=== PATIENT | female | born 1985 | race Caucasian/White ===

== ENCOUNTER 2017-05-30 04:50 | Inpatient (IN) | payer OTHER ==
[2017-05-30] MEDS ORDERED: OLIVE OIL 118 ML BTL MISC PRN (05:51)
[2017-05-30] MEDS ORDERED: LR 1,000 ML IV PRN (05:51)
[2017-05-30] MEDS ORDERED: OXYTOCIN/RINGERS LACTATE 1,000 ML IV PRN (05:51)
[2017-05-30] MEDS ORDERED: EPSOM SALT 454 GM TP PRN (05:51)
[2017-05-30] MEDS ORDERED: TERBUTALINE SULFATE 1 MG/ML VIAL IV PRN (05:51)
[2017-05-30] MEDS ORDERED: OLIVE OIL 118 ML BTL ONE (05:54)
[2017-05-30] MEDS ORDERED: LIDOCAINE 1% 300 MG/30 ML SDV ONE (05:54)
[2017-05-30] MEDS ORDERED: AMMONIA AROMATIC 1 EACH AMP IH ONE (05:54)
[2017-05-30] MEDS ORDERED: OXYTOCIN 10 UNIT/ML VIAL ONE (05:55)
[2017-05-30] MEDS ORDERED: TERBUTALINE SULFATE 1 MG/ML VIAL ONE (05:55)
[2017-05-30] MEDS ORDERED: MISOPROSTOL 200 MCG TAB ONE (05:55)
[2017-05-30 06:12] LABS: % IMMATURE GRANULYOCYTES 1.1 % (0.0-1.1); ABSOLUTE IMMATURE GRANULOCYTES 0.24 10^3/uL (0.00-0.10); ADD DIFF? NO; ADD MORPH? NO; ADD SCAN? NO; ATYPICAL LYMPHOCYTE FLAG 0 (0-99); FRAGMENT RBC FLAG 0 (0-99); HEMATOCRIT 36.5 % (38.0-47.0); HEMOGLOBIN 12.9 g/dL (12.6-16.3); LEFT SHIFT FLG 0 (0-99); LIPEMIA HEMOLYSIS FLAG 90 (0-99); MEAN CELL HEMOGLOBIN 30.8 pg (27.9-34.1); MEAN CELL HEMOGLOBIN CONCENTR. 35.3 g/dL (32.4-36.7); MEAN CELL VOLUME 87.1 fL (81.5-99.8); MEAN PLATELET VOLUME 10.9 fL (8.7-11.7); PLATELET CLUMPS FLAG 0 (0-99); PLATELET COUNT 199 10^3/uL (150-400); RED BLOOD CELL COUNT 4.19 10^6/uL (4.18-5.33); RED CELL DISTRIBUTION WIDTH 13.2 % (11.5-15.2)
[2017-05-30] MEDS ORDERED: fentaNYL 2MCG/ML/BUP 0.1% RTU 100 ML BAG EP ONE (06:39)
[2017-05-30] MEDS ORDERED: fentaNYL 100 MCG/2 ML INJ ONE ×2 (06:40→06:52)
[2017-05-30] MEDS ORDERED: BUPIVACAINE 0.25% 30 ML SDV ONE (06:40)
[2017-05-30] MEDS ORDERED: PHENYLEPHRINE HCL 100 MCG/ML SYR ONE (06:40)
--- NOTE | 2017-05-30 07:35 | PREANESOB ---
Obstetric Pre-Anesthesia Info - General Info Proposed Procedure: Labor and delivery. : 2 Para: 0 WBD: 38 - Info Status: Full Term Monitors: External FHR Baseline (bpm): 130 FHR Pattern: Reassuring - Labor Status Cervical Dilation per last OB SVE: 5 Indications for Labor Analgesia: Pain Control Labor Epidural: Proposed Anesthesia ROS: Mild asthma - no medication. Oral surgery with pain in spite of local anesthetic. Allergies/Adverse Reactions: Allergy/AdvReac Type Severity Reaction Status Date / Time No Known Allergies Allergy Unverified 05/30/17 05:14 Visit Medications: Generic Name Dose Route Start Last Admin Trade Name Freq PRN Reason Stop Dose Admin Lactated Ringer's 1,000 mls @ 0 mls/hr 05/30/17 05:51 Lr IV 11/26/17 05:50 PRN PRN SEE PROTOCOL CONDITIONS Protocol Per Protocol Oxytocin/Lactated Ringer's 1,000 mls @ 150 mls/hr 05/30/17 05:51 Pitocin 20 Units/Lr (Premix) IV PRN PRN Post- bleeding Ibuprofen 600 mg 05/30/17 05:51 Motrin PO 11/26/17 05:50 Q6HRS PRN post , inflammation Magnesium Sulfate 454 gm 05/30/17 05:51 Epsom Salt TP 11/26/17 05:50 Q1H PRN perineal discomfort Morrison Oil 118 ml 05/30/17 05:51 Sweet Oil MISC 11/26/17 05:50 ONCE PRN preneal massage Terbutaline Sulfate 0.25 mg 05/30/17 05:51 Brethine IV 11/26/17 05:50 ONCE PRN Tachysystole Discontinued Medications Generic Name Dose Route Start Last Admin Trade Name Freq PRN Reason Stop Dose Admin Ammonia (Aromatic Spirit) Confirm 05/30/17 05:54 Ammonia Aromatic Administered 05/30/17 05:55 Dose 1 each IH .STK-MED ONE Bupivacaine HCl Confirm 05/30/17 06:40 Sensorcaine 0.25% Sdv Administered 05/30/17 06:41 Dose 30 ml .ROUTE .STK-MED ONE Ephedrine Sulfate Confirm 05/30/17 05:55 Ephedrine Sulfate Administered 05/30/17 05:56 Dose 50 mg .ROUTE .STK-MED ONE Fentanyl Confirm 05/30/17 06:40 Sublimaze Administered 05/30/17 06:41 Dose 100 mcg .ROUTE .STK-MED ONE Fentanyl Confirm 05/30/17 06:52 Sublimaze Administered 05/30/17 06:53 Dose 100 mcg .ROUTE .STK-MED ONE Fentanyl/Bupivacaine HCl Confirm 05/30/17 06:39 Fentanyl/Bupivacaine/Ns 2 Mcg/Ml 0.1% (Premix Administered 05/30/17 06:40 Dose 100 ml EP .STK-MED ONE Lidocaine HCl Confirm 05/30/17 05:54 Lidocaine Hcl 1% Administered 05/30/17 05:55 Dose 300 mg .ROUTE .STK-MED ONE Misoprostol Confirm 05/30/17 05:55 Cytotec Administered 05/30/17 05:56 Dose 1,000 mcg .ROUTE .STK-MED ONE Morrison Oil Confirm 05/30/17 05:54 Sweet Oil Administered 05/30/17 05:55 Dose 118 ml .ROUTE .STK-MED ONE Oxytocin Confirm 05/30/17 05:55 Pitocin Administered 05/30/17 05:56 Dose 40 unit .ROUTE .STK-MED ONE Phenylephrine HCl Confirm 05/30/17 06:40 Neosynephrine Administered 05/30/17 06:41 Dose 1,000 mcg .ROUTE .STK-MED ONE Terbutaline Sulfate Confirm 05/30/17 05:55 Brethine Administered 05/30/17 05:56 Dose 1 mg .ROUTE .STK-MED ONE - Anesthesia History Response to Local Anesthetics: Normal Anesthesia & Operative History: Prob w/Prior Anesthesia (Local anesthetic not adequate for oral surgery.) Family Anesthesia History: Not Applicable - Social History Substance Use/Abuse: Denies - Focused Exam Blood Pressure: 111/66 Heart Rate: 74 Respiratory Rate: 18 Height/Weight (Nursing): Height 162.56 cm Weight 65.317 kg Physical Exam: Within normal limits. ASA Status: II Labs: 05/30/17 06:00 Patient ABO/Rh A POSITIVE 05/30/17 06:00 - Plan Anesthetic Plan: CSE Consent Signed and on Chart: Yes Patient/Guardian Understands and Agrees to Plan: Yes Urgent/Emergent Case: Galina holman completed preop but documented later for safe timely pt care
[2017-05-30] MEDS ORDERED: PHENYLEPHRINE HCL 100 MCG/ML SYR IVP PRN (07:38)
[2017-05-30] MEDS ORDERED: ONDANSETRON 4 MG/2 ML VIAL IVP PRN (07:38)
--- NOTE | 2017-05-30 07:38 | POSTANESTH ---
Post Anesthetic Evaluation Cardiovascular Status: Normal, Stable Respiratory Status: Normal, Stable, Similar to Pre-op Cond. Level of Consciousness/Mental Status: Can Participate in Eval, Alert and Oriented Pain Control: Adequate, Prn Tx Ordered Nausea/Vomiting Control: Adequate, Prn Tx Ordered Complications Possibly Related to Anesthesia: None Noted
[2017-05-30] MEDS ORDERED: LR 500 ML IV SCH (08:00)
[2017-05-30] MEDS ORDERED: fentaNYL 2MCG/ML/BUP 0.1% RTU 100 ML EP SCH (08:00)
--- NOTE | 2017-05-30 10:07 | OBPROG ---
OBG Labor Progress Note Assessment/Plan: Assessment: 32 y/o @ 37 5/7 wks with active labor Plan: Cont expectant management s/p epidural FHTs - Cat I tracing Will start pushing Anticipate 05/30/17 10:05 Subjective: Pt is comfortable, s/p epidural Objective: 05/30/17 06:00 Patient ABO/Rh A POSITIVE 05/30/17 06:00 Temp Pulse Resp BP Pulse Ox 74 18 111/66 05/30/17 07:37 05/30/17 07:37 05/30/17 07:37 - SVE Dilation (cm): 10 Effacement (%): 100 Station: +2 Dilation Complete Date: 05/30/17 Dilation Complete Time: 09:15 Robin FHR (bpm): 130 FHR Pattern Variability: Moderate FHR Category: 1 Membranes: SROM Amniotic Fluid Color: Clear Oxytocin Orders Assessment - Pre-Induction/Augmentation Assessment Gestational Age: 37 week(s) and 5 day(s) ICD10 Worksheet Patient Problems: Problems Problem Status Onset Active labor at term Acute - ICD10 Problem Qualifiers (1) Active labor at term
[2017-05-30] MEDS ORDERED: LR 500 ML IV PRN (10:34)
[2017-05-30] MEDS ORDERED: OXYTOCIN/RINGERS LACTATE 500 ML IV SCH (11:00)
--- NOTE | 2017-05-30 11:28 | GHP ---
[f rep st] HISTORY AND PHYSICAL DATE OF ADMISSION: 05/30/2017 ADMITTING DIAGNOSIS: 1. Intrauterine at 37 and 5/7 weeks. 2. Active labor. 3. Spontaneous rupture of membranes. HISTORY OF PRESENT ILLNESS: Patient is a 32-year-old, 2, para 0-0-1-0, at 37 and 5 weeks with estimated due date 06/15/2017 by a last menstrual period 09/07/2016, and confirmed by a 7-8 week ultrasound. The patient presents to labor and delivery with complaints of leakage of fluid as well as contractions. The patient states clear fluid at about 6:30 this morning as well as contractions every 3-5 minutes. The patient states there is good movement. Denies any vaginal bleeding or spotting. The patient does have good care at [facility] and presented in her 1st trimester. is pretty much uncomplicated. The patient did have an abnormal Pap smear, ASCUS, positive HPV. She did have a colposcopy done in the with no biopsies. Will follow up . On 20-week ultrasound, there was estimated weight 90th percentile and follow up ultrasound at 36 weeks showed growth in 21st percentile. Ultrasound also noted pyelectasis which resolved on followup ultrasound at 36 weeks. Negative Verifi. The patient did receive Tdap. GBS culture is negative. PAST OB HISTORY: In 2006, patient had a therapeutic . 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 Cycles every 28 days times 3-5 days. Last menstrual period 09/07/2016. Positive test 10/16/2016. Patient does have a history of abnormal Pap smears. 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 Patient did have an abnormal Pap smear during this , ASCUS, +HPV. The patient denies exposure to any other sexually transmitted diseases. PAST MEDICAL HISTORY: Childhood asthma.. PAST SURGICAL HISTORY: Adenoidectomy at age 6-7. Therapeutic 2006. MEDICATIONS: [id number] vitamins, DHA. ALLERGIES: No known drug allergies. SOCIAL HISTORY: Patient is engaged. She is a nurse on the orthopedic floor. Denies any alcohol, tobacco, illicit drug use. SOCIAL HISTORY: Patient is adopted. LABS: A positive, antibody negative. RPR nonreactive. Rubella immune. Hepatitis B surface antigen negative. HIV negative. Verifi is negative. Urine culture negative. Pap ASCUS, +HPV. Gonorrhea and chlamydia cultures negative. H and H 12.8, 37.1. One-hour Glucola 81. GBS culture negative. REVIEW OF SYSTEMS: 10-point review of systems negative. Any pertinent positives noted in HPI. PHYSICAL EXAMINATION: VITALS: On admission, vital signs are stable. Patient is afebrile, well-nourished, well-developed female. Alert, oriented x3. No apparent distress. CARDIOVASCULAR: Regular rate and rhythm. LUNGS: Clear to auscultation bilaterally. Normal breath sounds. ABDOMEN: Gravid, nontender, nondistended. EXTREMITIES: Normal to inspection without calf tenderness or edema. PELVIC: On initial exam, she was found to be 4-5 cm dilated, grossly ruptured, clear fluid. On the monitor, heart tones are Category 1 tracing with a baseline of 130 beats per minute. Positive accelerations. No decelerations. Moderate variability. On toco, she is agustín every 3-5 minutes. ASSESSMENT: The patient is a 32-year-old, 2, para 0-0-1-0, at 37 and 5 weeks who presents in active labor with spontaneous rupture of membranes. PLAN: 1. Admit to labor and delivery for expectant management. 2. GBS culture is negative. No antibiotics needed. 3. Patient desires an epidural. 4. Anticipate vaginal delivery. /[id number]/MODL MTDD
[2017-05-30] MEDS ORDERED: METHYLERGONOVINE MAL 0.2 MG/ML INJ ONE (13:45)
[2017-05-30 13:59] LABS: BASE EXCESS CORD -2.9 mEq/L (-13.6--3.2); CORD BLOOD PCO2 32.8 mmHg (37-60); PH ARTERIAL CORD BLOOD 7.41 (7.10-7.37); PH VENOUS CORD BLOOD 7.42 (7.20-7.42)
[2017-05-30] MEDS ORDERED: HYDROCODONE/APAP 5/325 TAB PO PRN (14:03)
[2017-05-30] MEDS ORDERED: SIMETHICONE 80 MG TAB CHEW PO PRN (14:03)
[2017-05-30] MEDS ORDERED: HYDROCORTISONE 0.5% CREAM TP PRN (14:03)
[2017-05-30] MEDS ORDERED: DOCUSATE SODIUM 100 MG CAP PO PRN (14:03)
[2017-05-30] MEDS ORDERED: IBUPROFEN 600 MG TAB PO PRN (14:04)
--- NOTE | 2017-05-30 14:08 | OBDEL ---
Info Type: Vaginal GBS+: No Indications for Delivery: Spontaneous Labor, SROM Vaginal Delivery - Labor and Delivery Onset of Contractions Date: 05/30/17 Onset of Contractions Time: 02:30 Onset of Contractions Type: Spontaneous Rupture of Membranes Date: 05/30/17 Rupture of Membranes Time: 06:40 Rupture of Membranes Type: Spontaneous Amniotic Fluid Color: Clear, Meconium Stained (During second stage of labor) Dilation Complete Date: 05/30/17 Dilation Complete Time: 09:15 Placenta Delivery Date: 05/30/17 Placenta Delivery Time: 13:40 Total Hours of Labor: 11 Non-surgical Procedures: Episiotomy (Midline with no extensions) Episiotomy: Midline Repair: 3-0, Vicryl Vaginal Sponge Count Correct: Yes Vaginal Needle Count Correct: Yes Vaginal Sweep Performed: Yes EBL: 500cc Delivery Events: Nuchal Cord (x1; loose-slipped over perineum), Post Hemorrhage (Uterus noted to be boggy even with massage. Pitocin was running. Cytotec 1000mcg MD was given as well as Methergine IM x 1. Uterus became firm and bleeding slowed down.) Cord Gases: Cord Gases Cord Blood PCO2 32.8 mmHg (37-60) L 05/30/17 13:34 Cord Base Excess -2.9 mEq/L (-13.6--3.2) H 05/30/17 13:34 Cord ABG pH 7.41 (7.10-7.37) H 05/30/17 13:34 Cord VBG pH 7.42 (7.20-7.42) 05/30/17 13:34 - Medications Labor Augmentation/Induction Methods Used: Pitocin (During second stage of labor -ctx's spaced out.) Operative Report - Delivery Cord Gases: Cord Gases Cord Blood PCO2 32.8 mmHg (37-60) L 05/30/17 13:34 Cord Base Excess -2.9 mEq/L (-13.6--3.2) H 05/30/17 13:34 Cord ABG pH 7.41 (7.10-7.37) H 05/30/17 13:34 Cord VBG pH 7.42 (7.20-7.42) 05/30/17 13:34 Assissted Delivery Assisted Delivery Type: Vacuum (Kiwi) Station: +3 Pop offs (Total): 1 Pulls (Total): 3 (Duration of 4 min and then removed and due to maternal exhaustion reapplied x 2 min with first pop-off) Data Robin Delivery Date: 05/30/17 Delivery Time: 13:34 MIRELLA: 06/15/17 Gestational Age: 37 week(s) and 5 day(s) Sex of Infant: Male Score (1 Min): 7 Score (5 Min): 9 ICD10 Worksheet Patient Problems: Problems Problem Status Onset Active labor at term Acute - ICD10 Problem Qualifiers (1) Active labor at term
[2017-05-30] MEDS: IBUPROFEN 600 MG TAB PO PRN ×2 (14:10→19:52)
[2017-05-30 16:52] VITALS: O2SAT 95
[2017-05-31] MEDS: IBUPROFEN 600 MG TAB PO PRN (02:16)
[2017-05-31 08:03] VITALS: BP 101/67; PULSE 80; RESP 16; TEMP 97.4
[2017-05-31] MEDS ORDERED: IRON POLYSAC/IRON HEME 28 MG TAB PO SCH (09:00)
--- NOTE | 2017-05-31 09:00 | OBPP ---
Progress Note Assessment/Plan: Assessment: 32 y/o PPD #1 s/p doing well. Plan: D/c home today is baby is stable with Ibuprofen. Follow-up @ [facility] 4 and 6 weeks. 05/31/17 08:59 Subjective: Pt is doing well this am. She has min cramping and pain controlled with Ibuprofen. She has min lochia, ambulating, voiding well and baby is doing well. Breast feeding just waiting for milk to come in. Objective: 05/31/17 05:30 Patient ABO/Rh A POSITIVE 05/30/17 06:00 Temp Pulse Resp BP Pulse Ox 36.3 C 80 16 101/67 95 05/31/17 07:59 05/31/17 07:59 05/31/17 07:59 05/31/17 07:59 05/30/17 21:11 Uterine Position/Fundal Height: Umbilicus -2 Uterine Tone: Firm Physical Exam - Physical Exam General Appearance: WD/WN, alert, no apparent distress Neck: non-tender, full range of motion, supple Respiratory: chest non-tender, lungs clear, normal breath sounds Cardiac/Chest: regular rate, rhythm Abdomen: normal bowel sounds Extremities: swelling (no), Maia's sign (neg)
--- NOTE | 2017-05-31 09:04 | OBGCSDC ---
General Delivery Information - General Info : 2 Para: 1 Abortions: 1 Delivery Physician/CNM: Viktoria Dunbar Admission Date: 05/30/17 Labs: Patient ABO/Rh A POSITIVE 05/30/17 06:00 Hct 25.1 % (38.0-47.0) L D 05/31/17 05:30 Vaginal - Diagnosis Labor: Spontaneous Rupture of Membranes Type: Spontaneous Amniotic Fluid Color: Clear, Meconium Stained (During second stage of labor) Episiotomy: Midline Repair: 3-0, Vicryl Delivery Events: Nuchal Cord (x1; loose-slipped over perineum), Post Hemorrhage (Uterus noted to be boggy even with massage. Pitocin was running. Cytotec 1000mcg NV was given as well as Methergine IM x 1. Uterus became firm and bleeding slowed down.) - Operations/Procedures Assisted Delivery Type: Vacuum (Kiwi) Non-surgical Procedures: Episiotomy (Midline with no extensions) L&D Analgesia/Anesthesia Type: Epidural, IV Narcotics - Hospital Course Antepartum: Pt with abn pap, Had EFW > 98% Intrapartum: presented in active labor, SROM clear fluid, epidural, pushed 2-3 hours vacuum assist : normal course, d/c home 24 hours. - Delivery Non-surgical Procedures: Episiotomy (Midline with no extensions) L&D Analgesia/Anesthesia Type: Epidural, IV Narcotics Data Robin Delivery Date: 05/30/17 Delivery Time: 13:34 MIRELLA: 06/15/17 Gestational Age: 37 week(s) and 6 day(s) Sex of Infant: Male [place] Weight (gm): 2794 kg Score (1 Min): 7 Score (5 Min): 9 Discharge Information - Discharge Information Discharge Medications: Iron, Ibuprofen Instruction/Follow Up: Four Weeks, Six Weeks Discharge Physician/CNM: Viktoria Dunbar
== END 2017-05-31 17:00 | disposition home or self-care (01) | DRG 774 ==
LOC: FLD 04:50 → OBSVTOIN 04:50 → FOB 16:50
PROVIDERS: ADMIT Obstetrics & Gynecology; ATTEND Obstetrics & Gynecology
PROC: 10D07Z6 Extraction of Products of Conception, Vacuum, Via Natural or Artificial Opening (ICD-10-PCS; principal; 2017-05-30)
DX: O69.82X0 Labor and delivery complicated by other cord entanglement, without compression, not applicable or unspecified (principal); O72.2 Delayed and secondary postpartum hemorrhage; Z37.0 Single live birth; Z3A.37 37 weeks gestation of pregnancy
CPT/HCPCS: J2210; J2370; J2590; J3010; J3105

== ENCOUNTER 2018-03-31 13:28 | Inpatient (IN) | payer OTHER ==
[2018-03-31 13:57] LABS: PLATELET COUNT 308 10^3/uL (150-400)
--- NOTE | 2018-03-31 15:01 | EDPHY ---
H & P Smoking Status: Never smoked Time Seen by Provider: 03/31/18 13:53 HPI/ROS: CHIEF COMPLAINT: Upper abdominal pain HISTORY OF PRESENT ILLNESS: Patient states that she has had right upper quadrant abdominal pain off and on for the last 2 weeks. It radiates to the back and associated with some belching and hiccups but no nausea, vomiting, diarrhea. No dysuria. Patient states it is usually worse at night but is sometimes worse with food. This morning after breakfast the pain became quite severe and she came in for evaluation. She denies any chest pain, shortness of breath. She has tried some antacids with no relief. No significant EtOH. Last menstrual period 3 weeks ago and has a new ring. No fevers or other recent illnesses. Contents of 10 point review of systems otherwise negative except for what is mentioned in HPI. General Appearance: Alert, no distress. Eyes: Pupils equal and round no pallor or injection. ENT, Mouth: Mucous membranes moist. Respiratory: There are no retractions, lungs are clear to auscultation. Cardiovascular: Regular rate and rhythm. Gastrointestinal: Abdomen is soft, no masses, bowel sounds normal. Tenderness to the right upper quadrant with positive Rueda's. No peritoneal signs. Neurological: Awake and alert, no focal neurologic deficits. Skin: Warm and dry, no rashes. Musculoskeletal: Neck is supple nontender. Extremities are symmetrical, full range of motion, no edema. Psychiatric: Patient is oriented X 3, there is no agitation. Medical/surgical history: Asthma, no surgeries. 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 Has 1 child. (Margie Mclean) Constitutional: Initial Vital Signs Temperature (C) 36.6 C 03/31/18 13:34 Heart Rate 75 03/31/18 13:34 Respiratory Rate 18 03/31/18 13:34 Blood Pressure 121/92 H 03/31/18 13:34 O2 Sat (%) 96 03/31/18 13:34 O2 Delivery Mode Room Air Allergies/Adverse Reactions: red dye Allergy (Uncoded 03/31/18 13:34) Home Medications: Medication Instructions Recorded NK [No Known Home Meds] 03/31/18 Medical Decision Making - Diagnostics Imaging: Discussed imaging studies w/ scalloper Radiologist - Diagnostics Imaging Results: Imaging Impressions Abdomen Ultrasound 03/31/18 14:08 Impression: 1. Cholelithiasis and distended gallbladder with choledocholithiasis. 2. Common bile duct is mildly dilated measuring 6 to 7 mm. Findings discussed with Margie Mclean MD at 15:21 hour, 03/31/2018. ED Course/Re-evaluation: Re-evaluation at 2:20 p.m., I discussed laboratory findings with patient. Suspicious for obstructive cholelithiasis. Patient requesting general surgeon Dr. Ortiz if surgical problem found on right upper quadrant ultrasound. 3:00 p.m. discussed patient in detail with Dr. Weems. Currently awaiting ultrasound results. Patient continues to refuse pain medications or IV fluids at this time. She states she is intolerant of normal saline but likely lactated Ringer's would be tolerable if needed. (Margie Mclean) Differential Diagnosis: Differential diagnosis includes but is not limited to cholelithiasis, cholecystitis, choledocholithiasis, hepatitis, pancreatitis. After evaluation the emergency department prior to ultrasound results likely obstructive cholelithiasis. Awaiting ultrasound results and disposition pending. Dr. Weems taking over care. (Margie Mclean) Other Provider: I assumed care of this patient from Dr. Mclean at 3 o'clock, change of shift. Ultrasound was reported as demonstrating gallstones in the gallbladder as well as a common bile duct stone. I discussed the findings with the patient. She understands the need to be NPO as well as the need for urgent surgery. She requests that I contact Dr. Maggie Amaro for surgical treatment. Patient's last oral intake was 930 this morning. She again declined pain meds or antibiotics. She again declined IV fluids. Patient will be admitted to [facility]. She is stable for POV transfer. She was transferred with her driving. ( Mikayla Weems) - Data Points Laboratory Results: Laboratory Results 03/31/18 13:50 03/31/18 13:50 03/31/18 03/31/18 03/31/18 14:10 14:10 13:50 WBC RBC Hgb Hct MCV MCH MCHC RDW Plt Count MPV Neut % (Auto) Lymph % (Auto) Avery % (Auto) Eos % (Auto) Baso % (Auto) Nucleat RBC Rel Count Absolute Neuts (auto) Absolute Lymphs (auto) Absolute Monos (auto) Absolute Eos (auto) Absolute Basos (auto) Absolute Nucleated RBC Immature Gran % Immature Gran # Sodium 140 mEq/L mEq/L (135-145) Potassium 4.1 mEq/L mEq/L (3.5-5.2) Chloride 101 mEq/L mEq/L (97-110) Carbon Dioxide 25 mEq/l mEq/l (22-31) Anion Gap 14 mEq/L mEq/L (8-16) BUN 9 mg/dL mg/dL (7-23) Creatinine 0.7 mg/dL mg/dL (0.6-1.0) Estimated GFR > 60 Glucose 100 mg/dL mg/dL (70-100) Calcium 10.5 mg/dL H mg/dL (8.5-10.4) Total Bilirubin 3.2 mg/dL H mg/dL (0.1-1.4) Conjugated Bilirubin 2.4 mg/dL H mg/dL (0.0-0.5) Unconjugated Bilirubin 0.8 mg/dL mg/dL (0.0-1.1) AST 266 IU/L H IU/L (14-46) ALT 542 IU/L H IU/L (9-52) Alkaline Phosphatase 201 IU/L H IU/L (38-126) Total Protein 8.3 g/dL H g/dL (6.3-8.2) Albumin 4.4 g/dL g/dL (3.5-5.0) Lipase 157 IU/L IU/L (23-300) Urine Color YELLOW Urine Appearance HAZY Urine pH 7.5 (5.0-7.5) Ur Specific [place] 1.020 (1.002-1.030) Urine Protein NEGATIVE (NEGATIVE) Urine Ketones TRACE H (NEGATIVE) Urine Blood NEGATIVE (NEGATIVE) Urine Nitrate NEGATIVE (NEGATIVE) Urine Bilirubin POSITIVE H (NEGATIVE) Urine Urobilinogen 2.0 EU H EU (0.2-1.0) Ur Leukocyte Esterase NEGATIVE (NEGATIVE) Urine Glucose NEGATIVE (NEGATIVE) Urine Test NEGATIVE 03/31/18 13:50 WBC 7.85 10^3/uL 10^3/uL (3.80-9.50) RBC 5.00 10^6/uL 10^6/uL (4.18-5.33) Hgb 14.5 g/dL g/dL (12.6-16.3) Hct 42.8 % % (38.0-47.0) MCV 85.6 fL fL (81.5-99.8) MCH 29.0 pg pg (27.9-34.1) MCHC 33.9 g/dL g/dL (32.4-36.7) RDW 13.3 % % (11.5-15.2) Plt Count 308 10^3/uL 10^3/uL (150-400) MPV 10.3 fL fL (8.7-11.7) Neut % (Auto) 68.0 % % (39.3-74.2) Lymph % (Auto) 20.4 % % (15.0-45.0) Avery % (Auto) 7.1 % % (4.5-13.0) Eos % (Auto) 3.7 % % (0.6-7.6) Baso % (Auto) 0.5 % % (0.3-1.7) Nucleat RBC Rel Count 0.0 % % (0.0-0.2) Absolute Neuts (auto) 5.34 10^3/uL 10^3/uL (1.70-6.50) Absolute Lymphs (auto) 1.60 10^3/uL 10^3/uL (1.00-3.00) Absolute Monos (auto) 0.56 10^3/uL 10^3/uL (0.30-0.80) Absolute Eos (auto) 0.29 10^3/uL 10^3/uL (0.03-0.40) Absolute Basos (auto) 0.04 10^3/uL 10^3/uL (0.02-0.10) Absolute Nucleated RBC 0.00 10^3/uL 10^3/uL (0-0.01) Immature Gran % 0.3 % % (0.0-1.1) Immature Gran # 0.02 10^3/uL 10^3/uL (0.00-0.10) Sodium Potassium Chloride Carbon Dioxide Anion Gap BUN Creatinine Estimated GFR Glucose Calcium Total Bilirubin Conjugated Bilirubin Unconjugated Bilirubin AST ALT Alkaline Phosphatase Total Protein Albumin Lipase Urine Color Urine Appearance Urine pH Ur Specific [place] Urine Protein Urine Ketones Urine Blood Urine Nitrate Urine Bilirubin Urine Urobilinogen Ur Leukocyte Esterase Urine Glucose Urine Test Departure - Departure [facility]: [facility] Acute Clinical Impression: Choledocholithiasis Abdominal pain Qualifiers: Abdominal location: right upper quadrant Qualified Code(s): R10.11 - Right upper quadrant pain Condition: Fair Referrals: NONE *PRIMARY CARE P,. [Primary Care Provider] - As per Instructions
[2018-03-31] MEDS ORDERED: D5W 1/2 NS W/ 20 KCl/L 1,000 ML IV SCH (17:45)
[2018-03-31] MEDS ORDERED: ceFAZolin 2 GM in NS 100 ML IV ONE (17:47)
[2018-03-31] MEDS ORDERED: BUPIVACAINE 0.5% 30 ML SDV ONE (17:56)
[2018-03-31] MEDS ORDERED: IOTHALAMATE MEG (CONRAY) 50 ML VIAL IV ONE (17:56)
[2018-03-31] MEDS ORDERED: ceFAZolin 2 GM/SWFI 2 GM/20 ML SYR IVP ONE (18:00)
[2018-03-31] MEDS ORDERED: MIDAZOLAM 2 MG/2 ML VIAL IVP ONE (18:16)
--- NOTE | 2018-03-31 18:20 | PDANEPAE ---
ANE History of Present Illness acute cholecystitis ANE Past Medical History - Pulmonary History Hx Oxygen in Use at Home: No Hx Sleep Apnea: No ANE Review of Systems Review of Systems: - Exercise capacity METS (RN): 4 METS ANE Patient History - Allergies Allergies/Adverse Reactions: red dye Allergy (Uncoded 03/31/18 13:34) - Home Medications Home Medications: NK [No Known Home Meds] 03/31/18 [Last Taken Unknown] - NPO status NPO Since - Liquids (Date): 03/31/18 NPO Since - Liquids (Time): 09:30 NPO Since - Solids (Date): 03/31/18 NPO Since - Solids (Time): 09:30 - Smoking Hx Smoking Status: Never smoked ANE Labs/Vital Signs - Labs Result Diagrams: 03/31/18 13:50 03/31/18 13:50 - Vital Signs Blood Pressure: 113/78 Heart Rate: 69 Respiratory Rate: 16 O2 Sat (%): 96 Height: 162.56 cm Weight: 52.163 kg ANE Physical Exam - Airway Neck exam: FROM Mallampati Score: Class 1 Mouth exam: normal dental/mouth exam - Pulmonary Pulmonary: no respiratory distress - Cardiovascular Cardiovascular: regular rate and rhythym - ASA Status ASA Status: I ANE Anesthesia Plan Anesthesia Plan: general endotracheal anesthesia
[2018-03-31] MEDS ORDERED: MIDAZOLAM 2 MG/2 ML VIAL ONE (18:31)
[2018-03-31] MEDS ORDERED: fentaNYL 100 MCG/2 ML INJ ONE ×2 (18:36)
[2018-03-31] MEDS ORDERED: HYDROmorphONE/DILAUDID 2 MG/ML INJ ONE (18:36)
[2018-03-31] MEDS ORDERED: PROPOFOL 200 MG/20 ML VIAL ONE (18:36)
--- NOTE | 2018-03-31 18:50 | GHP ---
[f rep st] HISTORY AND PHYSICAL DATE OF ADMISSION: 03/31/2018 CHIEF COMPLAINT: Choledocholithiasis. HISTORY OF PRESENT ILLNESS: The patient was traveling in [place], and on her birthday, noted severe upper abdominal pain that caused her to essentially be in the position. She reports that she w ould rather give again than have this pain. It radiated to her back. She did not have nausea, vomiting, or diarrhea. She did not want to seek care in [place]. She arrived home from [facility] t night. She went out to breakfast this morning and then had increased pain. She presented to [facility]. Laboratory work and ultrasound were obtained. The ultrasound showed choledocholithiasis. T here is no obvious cholecystitis. Her white count is normal. Her total bilirubin is 3.2, and conjug ated 2.4. AST/ALT 266/542, and alkaline phosphatase 201. She has not had pain medicine. PAST MEDICAL HISTORY: Asthma. PAST SURGICAL HISTORY: Adenoids. SOCIAL HISTORY: She is a nurse at [employer]. She does not use tobacco. FAMILY HISTORY: Noncontributory. REVIEW OF SYSTEMS: Ten-point review of systems negative except per HPI. PHYSICAL EXAM: VITAL SIGNS: 36.9, 69, 113/78, 16, 96%. GENERAL: Pleasant, well-groomed woman sitt ing up in bed. Well-nourished. at bedside. HEENT: Normocephalic. No gross hearing defici ts. Mucous membranes moist. Pupils equal and round. No scleral icterus. LUNGS: Clear to ausculta tion bilaterally. No increased work of breathing. No wheezing. CARDIAC: Regular rate. No periphe ral edema. ABDOMEN: Bowel sounds present. Soft. No surgical incisions. MUSCULOSKELETAL: Normal nails. SKIN: Warm and dry. PSYCH: A bit irritated, understandably. Otherwise, mood and affect no rmal. IMPRESSION AND PLAN: The patient is a 33-year-old woman with choledocholithiasis. I will take her t o the operating room for laparoscopic cholecystectomy with intraoperative cholangiogram. The risks a nd benefits, including but not limited to infection, bleeding, damage to common bile duct, need for a dditional procedures, were all discussed. She will receive [employer] beverage inspection machine tender to the OR. She had her que stions answered to her satisfaction. /[id number]/MODL
[2018-03-31] MEDS ORDERED: NALOXONE HCL 0.4 MG/ML INJ IVP PRN (19:11)
[2018-03-31] MEDS ORDERED: fentaNYL 100 MCG/2 ML INJ IVP PRN (19:11)
[2018-03-31] MEDS ORDERED: ONDANSETRON 4 MG/2 ML VIAL IVP PRN (19:11)
[2018-03-31] MEDS ORDERED: HYDROmorphONE/DILAUDID 2 MG/ML INJ IVP PRN (19:11)
[2018-03-31] MEDS ORDERED: PROMETHAZINE HCL 25 MG/ML INJ IVP PRN (19:11)
[2018-03-31] MEDS ORDERED: SUGAMMADEX SODIUM 200 MG/2 ML VIAL IVP ONE (19:29)
[2018-03-31] MEDS ORDERED: DEXAMETHASONE 4 MG/ML VIAL ONE (19:29)
[2018-03-31] MEDS ORDERED: ONDANSETRON 4 MG/2 ML VIAL ONE (19:29)
--- NOTE | 2018-03-31 19:47 | POSTOPPROG ---
Post Op Note Date of Operation: 03/31/18 Surgeon: Maggie Amaro Anesthesiologist: suki Anesthesia: GET(General Endotracheal) Pre-op Diagnosis: choledocolithiasis Post-op Diagnosis: same Indication: 33 yo with choledocolithasis Procedure: lap haylie ioc Findings: stone in cbd Inf/Abcess present in the surg proc area at time of surgery?: No Depth: Superfical (Skin SQ) EBL: Minimal Specimen(s): gallbladder
--- NOTE | 2018-03-31 19:52 | POSTANESTH ---
Post Anesthetic Evaluation Cardiovascular Status: Normal, Stable Respiratory Status: Normal, Stable Level of Consciousness/Mental Status: Can Participate in Eval Pain Control: Adequate, Prn Tx Ordered Nausea/Vomiting Control: Adequate, Prn Tx Ordered Complications Possibly Related to Anesthesia: None Noted
--- NOTE | 2018-03-31 21:00 | GOP ---
[f rep st] OPERATIVE REPORT DATE OF OPERATION: 03/31/2018 SURGEON: Maggie Amaro MD ANESTHESIA: General. ANESTHESIOLOGIST: Lukas Craft MD PREOPERATIVE DIAGNOSIS: Choledocholithiasis. POSTOPERATIVE DIAGNOSIS: Choledocholithiasis. PROCEDURE PERFORMED: Laparoscopic cholecystectomy with intraoperative cholangiogram. FINDINGS: Filling defect in the distal common bile duct. SPECIMENS: Gallbladder. ESTIMATED BLOOD LOSS: 5 cc. INDICATIONS: The patient is a 33-year-old who developed abdominal pain and was found to have choledocholithiasis. DESCRIPTION OF PROCEDURE: The patient was brought into the operating room, placed supine on the table, and general anesthesia was administered. Her abdomen was prepped and draped in the usual sterile fashion. I infiltrated all sites with 0.5% Marcaine prior to making incisions. I made an incision at her umbilicus. I elevated it. I inserted the Veress needle. It passed the hanging drop test. Her abdomen insufflated easily to a pressure of 15 mmHg. I placed a 5 mm trocar with a camera at this site. Under direct vision, I placed a 10 mm subxiphoid trocar and two 5 mm trocars along the right costal margin. I examined her abdomen. There were no injuries from Veress needle placement. The gallbladder was very large and tense. I used an aspiration needle to aspirate 40 cc of bile from the gallbladder. I then could lift it cephalad and laterally to expose the triangle of Calot. I dissected the cystic artery and cystic duct so that they were the only two structures entering her gallbladder. I singly clipped the cystic artery toward the gallbladder, doubly clipped it distally and transected it. The cystic duct was enlarged. I milked stones back into the gallbladder. I then could singly clipped it toward the gallbladder. I made a partial transection of the cystic duct. There was brisk bile flowing out. I inserted the cholangiogram catheter. I performed a cholangiogram. I could see nice filling of the right and left hepatic ducts. There is a filling defect in the mid common bile duct. I attempted to flush the stone but there was never contrast into the duodenum. I attempted several maneuvers and they were not successful. I then clipped the cystic duct and finished transecting it. I placed an Endoloop around this. Suction irrigation was performed. The gallbladder was removed from the gallbladder fossa with electrocautery. Hemostasis achieved. The gallbladder was placed in an endocatch bag and removed. Elisa was placed on the liver bed. Ports removed under direct vision. The abdomen was allowed to desufflate. The fascia at the 10 mm trocar site was closed with 0 Vicryl, skin closed with 4-0 Monocryl. Dermabond applied. She was awakened in the operating room, extubated, transferred to PACU in stable condition. /[id number]/MODL MTDD
[2018-03-31] MEDS: KETOROLAC 15 MG/1 ML SDV IVP SCH ×2 (21:55→22:34)
[2018-03-31] MEDS: ACETAMINOPHEN 325 MG TAB PO PRN (22:07)
[2018-03-31] MEDS: ONDANSETRON 4 MG/2 ML VIAL IVP PRN (22:34)
[2018-03-31] MEDS: OXYCODONE/APAP 5/325 TAB PO PRN (23:01)
[2018-03-31] MEDS: LR 1,000 ML IV SCH (23:21)
[2018-04-01] MEDS: OXYCODONE/APAP 5/325 TAB PO PRN (02:44)
[2018-04-01] MEDS: ONDANSETRON 4 MG/2 ML VIAL IVP PRN (02:45)
[2018-04-01] MEDS: KETOROLAC 15 MG/1 ML SDV IVP SCH ×3 (05:04→18:30)
[2018-04-01 05:34] LABS: PLATELET COUNT 269 10^3/uL (150-400)
--- NOTE | 2018-04-01 09:03 | SOAPPROG ---
SOAP Progress Note Assessment/Plan: Assessment/Plan: 33yo F POD#1 s/p lap haylie for choledocholithiasis Bili up - ERCP today Leukocytosis - Levaquin Abd pain controlled - complaining of muscle spasms - requesting muscle relaxant NPO Dispo: continue inpt for ERCP and recheck labs in am S: very motivated to be discharged. Understands plan. Pain controlled. No nausea. No fevers. Muscle spasms and hiccups. Ativan doesn't work well for her. Requests muscle relaxant- will try flexeril O: Lying in bed, comfortable, no acute distress neck No increased work of breathing Hypoactive bowel sounds. Incisions clean, dry and intact without evidence of infection. Nondistended Objective: Vital Signs Temp Pulse Resp BP Pulse Ox 37.1 C 68 16 124/83 H 98 04/01/18 04:45 04/01/18 04:45 04/01/18 04:45 04/01/18 04:45 04/01/18 04:45 Laboratory Results 04/01/18 05:15 03/31/18 04/01/18 04/02/18 05:59 05:59 05:59 Intake Total 1350 Balance 1350 ICD10 Worksheet Patient Problems: Problems Problem Status Onset Abdominal pain Acute Choledocholithiasis Acute Active labor at term Acute Spontaneous vaginal delivery Acute
[2018-04-01] MEDS: levOFLOXACIN 500 MG/DEXTROSE 100 ML IV SCH (09:14)
[2018-04-01] MEDS: CYCLOBENZAPRINE 10 MG TAB PO SCH ×3 (09:14→22:00)
[2018-04-01] MEDS ORDERED: LR 1,000 ML IV ONE (15:32)
--- NOTE | 2018-04-01 15:38 | SOAPPROG ---
SOAP Progress Note Assessment/Plan: Assessment:Plan: see full dictated consult Lap haylie with IOC not emptying into sb c/w CBD stone for ERCP when endo and anesthesia available Ezekiel Jimenez MD [phone] 04/01/18 15:37 Objective: Vital Signs Temp Pulse Resp BP Pulse Ox 37.6 C 82 16 111/74 98 04/01/18 15:25 04/01/18 15:25 04/01/18 15:25 04/01/18 15:25 04/01/18 15:25 Laboratory Results 04/01/18 05:15 03/31/18 04/01/18 04/02/18 05:59 05:59 05:59 Intake Total 1350 Balance 1350 ICD10 Worksheet Patient Problems: Problems Problem Status Onset Abdominal pain Acute Choledocholithiasis Acute Active labor at term Acute Spontaneous vaginal delivery Acute
[2018-04-01] MEDS ORDERED: GLUCAGON HCL 1 MG VIAL ONE (15:58)
[2018-04-01] MEDS ORDERED: IOTHALAMATE MEG (CONRAY) 50 ML VIAL IV ONE (15:58)
--- NOTE | 2018-04-01 16:19 | GCON ---
[f rep st] CONSULTATION DATE OF CONSULTATION: 04/01/2018 REFERRING PHYSICIAN: Maggie Amaro MD INDICATION FOR CONSULTATION: Presumed choledocholithiasis. HISTORY OF PRESENT ILLNESS: The patient is a pleasant 33-year-old female who presented to Urgent Car e after having a significant episode of biliary colic while traveling in [place]. When she arrived h ome, she had increased pain; presents to Urgent Care and was admitted to the hospital for cholelithia sis. She had abnormal liver enzymes. She underwent laparoscopic cholecystectomy and intraoperative cholangiogram, revealed a possible obstruction as the contrast did not flow into the small bowel. Be cause of the abnormal IOC and continued symptoms, I am called to help and evaluate for presumed haylie docholithiasis. PAST MEDICAL HISTORY: She has asthma which is exacerbated by marijuana smoke but not tobacco smoke. PAST SURGICAL HISTORY: She just had her gallbladder removed yesterday. She had her adenoids removed years ago. FAMILY HISTORY: She was adopted at . ALLERGIES: Red dye, Vicodin and normal saline. MEDICATIONS: At home, none. In hospital include Tylenol p.r.n., Flexeril 10 mg t.i.d., Toradol 50 m g IV push q.6 p.r.n., lactated Ringer's, Levaquin 500 mg IV daily, morphine p.r.n., Zofran p.r.n., ox ycodone p.r.n. and potassium chloride. SOCIAL HISTORY: She does not smoke. She drinks alcohol maybe once a week. REVIEW OF SYSTEMS: Negative other than noted in the HPI. Complete review of systems performed is ne gative, other than in the HPI. PHYSICAL EXAM: GENERAL: Well developed, well nourished, sitting in her bed with abdominal discomfor t. VITAL SIGNS: Blood pressure 111/74, pulse 82, respirations 16, saturating 98% on room air, tempe rature 37.6. EYES: Icteric, DELL, EOMI. MOUTH: No lesions. Moist mucous membranes. NECK: Suppl e. Full range of motion. No JVD. BACK: No spine tenderness. No CVA tenderness. LUNGS: Clear. CARDIAC: S1, S2. Regular rate and rhythm. No murmurs, rubs or gallops appreciated. ABDOMEN: Bj l sounds are decreased in frequency. Abdomen is soft, with epigastric tenderness. No rebound or gua rding. She is also tender over her laparoscopic cholecystectomy sites. EXTREMITIES: No cyanosis, c lubbing, or edema. NEUROLOGIC: Cranial nerves are intact. Nonfocal. SKIN: No stigmata of advanced liver disease. No rashes. LABORATORY DATA: From yesterday, sodium 140, potassium 4.1, chloride 101, bicarb 25, BUN 9, creatini ne 0.7, glucose 100, calcium 10.5, bilirubin 3.2, AST 266, ALT 542, alkaline phosphatase 201, total p rotein 8.3, albumin 4.4, lipase 157. Today bilirubin 4.8, AST 336, ALT 550, alkaline phosphatase 162 . From today, WBC 19.02, hemoglobin 14.1, hematocrit 42.1, platelet count 269. Abdominal ultrasound from March 31 revealed cholelithiasis and distended gallbladder and the noted choledocholithiasis, wit h a common bile duct measuring 6-7 mm. Fluoroscopy performed during laparoscopic cholecystectomy. T here is mild ductal dilatation, faint oval shaped opacity over the mid point of the common bile duct; could be related to choledocholithiasis. The addendum said Dr. Amaro spoke with the radiologist. T here was never contrast opacification of the duodenal sweep; and there appears to be "cut-off" of the distal common bile duct near the ampulla, which could be related to an obstructing stone or ampullar y stricture or profound spasm. ASSESSMENT: 1. Abdominal pain. 2. Probable choledocholithiasis with abnormal fluoroscopy and abnormal sonogram. 3. Elevated liver enzymes. RECOMMENDATIONS: 1. Check lipase this morning. Add onto labs that are already there. It is possible that she may mike ve a mild pancreatitis. 2. An ERCP for presumed choledocholithiasis, given abnormal imaging studies and further abnormal lab oratories. 3. Further recommendations to follow results of ERCP. Thank you for allowing me to participate in the patient's health care. Do not hesitate to call me wi th any questions. /[id number]/MODL
--- NOTE | 2018-04-01 16:25 | PDANEPAE ---
ANE History of Present Illness s/p lap haylie w/ retained CBD stone here for ERCP ANE Past Medical History - Cardiovascular History Hx Hypertension: No Hx Arrhythmias: No Hx Chest Pain: No Hx Coronary Artery / Peripheral Vascular Disease: No - Pulmonary History Hx COPD: No Hx Asthma/Reactive Airway Disease: Yes Hx Oxygen in Use at Home: No Hx Sleep Apnea: No Sleep Apnea Screening Result - Last Documented: Negative Pulmonary History Comment: mild intermittant asthma - Endocrine History Hx Diabetes: No ANE Review of Systems Review of Systems: - Exercise capacity METS (RN): 4 METS ANE Patient History - Allergies Allergies/Adverse Reactions: red dye Allergy (Verified 04/01/18 09:43) Hives - Home Medications Home Medications: NK [No Known Home Meds] 03/31/18 [Last Taken Unknown] - NPO status NPO Status: no food or drink >8 hours NPO Since - Liquids (Date): 03/31/18 NPO Since - Liquids (Time): 20:30 NPO Since - Solids (Date): 03/31/18 NPO Since - Solids (Time): 09:30 - Anes Hx Anes Hx: post operative nausea and vomiting - Smoking Hx Smoking Status: Never smoked - Alcohol Use Alcohol Use: Rarely - Family Anes Hx Family Anes Hx: none ANE Labs/Vital Signs - Labs Result Diagrams: 04/01/18 05:15 03/31/18 13:50 - Vital Signs Blood Pressure: 110/74 Heart Rate: 97 Respiratory Rate: 14 O2 Sat (%): 97 Height: 162.56 cm Weight: 52.163 kg ANE Physical Exam - Airway Neck exam: FROM Mallampati Score: Class 1 Mouth exam: normal dental/mouth exam - Pulmonary Pulmonary: no respiratory distress, clear to auscultation - Cardiovascular Cardiovascular: regular rate and rhythym, no murmur, rub, or gallop - ASA Status ASA Status: II ANE Anesthesia Plan Anesthesia Plan: general endotracheal anesthesia Total IV Anesthesia: Yes
[2018-04-01] MEDS ORDERED: MIDAZOLAM 2 MG/2 ML VIAL IVP ONE (16:26)
[2018-04-01] MEDS ORDERED: PROPOFOL 200 MG/20 ML VIAL ONE (16:30)
[2018-04-01] MEDS ORDERED: fentaNYL 100 MCG/2 ML INJ ONE (16:30)
[2018-04-01] MEDS ORDERED: ROCURONIUM 50 MG/5 ML VIAL ONE (16:31)
[2018-04-01] MEDS ORDERED: PROPOFOL/EMULSION 500 MG/50 ML BOTTLE IV ONE ×2 (16:31→17:19)
[2018-04-01] MEDS ORDERED: LIDOCAINE 2% 100 MG/5 ML SYR ONE (16:31)
[2018-04-01] MEDS ORDERED: INDOMETHACIN 50 MG SUPP PR ONE ×4 (16:41→17:00)
--- NOTE | 2018-04-01 18:04 | POSTOPPROG ---
Post Op Note Date of Operation: 04/01/18 Surgeon: Ezkeiel Jimenez Anesthesiologist: Madie BRAVO Anesthesia: GET(General Endotracheal) Pre-op Diagnosis: abnl mIOC, presumed CBD stone Post-op Diagnosis: same Indication: IOC didn't reach duodenum and sono suggested CBD stone Procedure: ERCp sphincterotomy, balloon stone removal stent Findings: dilated CBD with filling defect, poor emptying so stent placed Inf/Abcess present in the surg proc area at time of surgery?: No EBL: Minimal (few ml) Total fluids administered: 900ml LR Complications: none immediate
[2018-04-01] MEDS ORDERED: NALOXONE HCL 0.4 MG/ML INJ IVP PRN ×2 (18:13→18:17)
--- NOTE | 2018-04-01 18:14 | POSTANESTH ---
Post Anesthetic Evaluation Cardiovascular Status: Normal, Stable, Similar to Pre-Op Cond Respiratory Status: Normal, Stable, Similar to Pre-op Cond. Level of Consciousness/Mental Status: Can Participate in Eval, Alert and Oriented Pain Control: Adequate, Prn Tx Ordered Nausea/Vomiting Control: Adequate, Prn Tx Ordered Complications Possibly Related to Anesthesia: None Noted
[2018-04-01] MEDS ORDERED: ONDANSETRON 4 MG/2 ML VIAL IVP PRN (18:17)
[2018-04-01] MEDS ORDERED: fentaNYL 100 MCG/2 ML INJ IVP PRN (18:17)
[2018-04-01] MEDS ORDERED: PROMETHAZINE HCL 25 MG/ML INJ IVP PRN (18:17)
[2018-04-01] MEDS ORDERED: KETOROLAC 15 MG/1 ML SDV ONE (18:29)
[2018-04-02] MEDS: KETOROLAC 15 MG/1 ML SDV IVP SCH ×4 (00:34→18:31)
--- NOTE | 2018-04-02 00:36 | GPN ---
[f rep st] PROCEDURE NOTE DATE OF PROCEDURE: 04/01/2018 PROCEDURE PERFORMED: Endoscopic retrograde cholangiopancreatography. INDICATION: Presumed choledocholithiasis with sonogram suggesting common bile duct stone. Intraoper ative cholangiogram, incomplete, unable to advance into the duodenum. Elevated liver enzymes consist ent with choledocholithiasis. PREPROCEDURE DIAGNOSIS: Choledocholithiasis. POSTPROCEDURE DIAGNOSIS: Choledocholithiasis status post endoscopic sphincterotomy and balloon remov al and 7-Hong Konger 5 cm stent placement. INFORMED CONSENT: I had a detailed discussion with the patient regarding the procedure, alternatives , benefits and risks including bleeding, perforation, infection, risk of medication, and pancreatitis . Informed consent was signed and witnessed. COMPLICATIONS: None immediate. MEDICATIONS USED: General anesthesia per Dr. Ramachandran and Indocin 100 mg rectal suppository. DESCRIPTION OF PROCEDURE: After adequate general anesthesia and placement in the swimmer's position, the side-viewing upper endoscope was inserted into the oropharynx and advanced down into the duodenu m. The major ampulla was located. Initial cannulation was in the pancreatic duct. Multiple attempt s were made to cannulate the common bile duct that were unsuccessful. I think a blind loop occurred. After the 4th wire into the pancreatic duct, I left that wire in there and then tried to perform a cannulation of the common bile duct with another wire through the sphincterotome. This was also unsu ccessful despite multiple attempts. The wire in the pancreatic tail fell out and then after several more attempts, I was able to deeply cannulate the common bile duct. Contrast was injected opacifying the common hepatic duct and some of the intrahepatic ducts. Filling defect was noted in the lower 3 rd of the common bile duct. A sphincterotomy was performed with an Erbe equipment to 1.2 cm. Guidew leeanne exchange was performed with a 9-12 mm balloon. This was advanced up to the bifurcation, inflated and withdrawn down the common bile duct. After the sphincterotomy and before balloon passage, there was little or no bile flow, and after balloon passage and removal of a fair amount of debris, there was significant bile flow. However, this lessened and it did not seem to be entering the bile duct n ear the end of the procedure. Four passes were made with a 12 mm balloon. Post balloon cholangiogra phy revealed only air bubbles and no filling defects, but the duct was not emptying briskly of the co ntrast. Therefore, I placed a 7-H[place] Konger 5 cm stent into the distal common bile duct with brisk bile a nd contrast flow. The endoscope was then completely removed confirming the above findings. The hilaria ent tolerated the procedure well and was transferred to Recovery in satisfactory condition. IMPRESSION: Choledocholithiasis, status post endoscopic sphincterotomy and balloon removal and 7-Tomas nch 5 cm stent placement. RECOMMENDATIONS: 1. Return to hospital [facility] for ongoing care. 2. Start liquid diet and advance as tolerated. 3. Follow up on the lipase added onto labs today. If significantly elevated, would only leave on cl ear liquids for tonight and let the pancreatitis resolve. If it is not elevated, advance diet as piotr erated. 4. Follow labs and clinical exam tomorrow. Expect the patient will be improving and possibly be abl e to be discharged. 5. Further recommendations to follow results of above and clinical course. Thank you for allowing me to participate in the patient's health chare. Do not hesitate to call with any questions. /[id number]/MODL
[2018-04-02] MEDS: CYCLOBENZAPRINE 10 MG TAB PO SCH ×4 (00:53→23:39)
[2018-04-02] MEDS: OXYCODONE/APAP 5/325 TAB PO PRN ×2 (01:37→04:03)
[2018-04-02] MEDS: ONDANSETRON 4 MG/2 ML VIAL IVP PRN (03:46)
[2018-04-02] MEDS: LR 1,000 ML IV SCH (03:46)
[2018-04-02] MEDS ORDERED: OXYCODONE/APAP 5/325 TAB PO PRN (04:05)
[2018-04-02] MEDS ORDERED: KETOROLAC 30 MG/1 ML SDV IVP ONE (06:00)
[2018-04-02] MEDS: HYDROmorphONE/DILAUDID 1 MG/ML INJ IVP PRN ×2 (06:06→11:03)
[2018-04-02 06:42] LABS: PLATELET COUNT 216 10^3/uL (150-400)
[2018-04-02] MEDS ORDERED: HYDROmorphONE/DILAUDID 2 MG TAB PO PRN (08:05)
--- NOTE | 2018-04-02 08:51 | SOAPPROG ---
SOAP Progress Note Assessment/Plan: Assessment/Plan: 33yo F POD#2 s/p lap haylie for choledocholithiasis. S/p ERCP with stent placement Bili and LFTs trending down Elevated lipase - gallstone pancreatitis IVF and bowel rest Regular diet (so patient can have some crackers. she understands to limit PO intake) Pain improved with dilaudid Levaquin Dispo: continue inpt for pain control and pancreatitis S: bump on inside of right cheek. pain controlled after changing to dilaudid. ok to have a few crackers O: Sitting at edge of bed, comfortable, no acute distress, fiance at bedside No increased work of breathing Hypoactive bowel sounds. Incisions clean, dry and intact without evidence of infection. Nondistended 04/02/18 13:25 Objective: Vital Signs Temp Pulse Resp BP Pulse Ox 36.6 C 80 20 121/81 H 98 04/02/18 04:10 04/02/18 04:10 04/02/18 04:10 04/02/18 04:10 04/02/18 04:10 Laboratory Results 04/02/18 06:15 04/01/18 04/02/18 04/03/18 05:59 05:59 05:59 Intake Total 1350 1200 Output Total 700 Balance 1350 500 ICD10 Worksheet Patient Problems: Problems Problem Status Onset Abdominal pain Acute Choledocholithiasis Acute Active labor at term Acute Spontaneous vaginal delivery Acute
[2018-04-02] MEDS: levOFLOXACIN 500 MG/DEXTROSE 100 ML IV SCH (09:01)
--- NOTE | 2018-04-02 10:04 | PDMN ---
Medical Necessity Medical necessity: Patient meets inpatient criteria per PA note and [facility] [place] M-251 Pancreatitis, with Common Duct Stone - 2 to 3 days - (had a lap cholecystectomy for biliary colic with intraoperative cholangiogram; no flow into small bowel/presumed choledocholithiasis; lipase elevated s/p ERCP/mild pancreatitis; LOS > 2 midnights for IV Levaquin, IV antiemetics and opioids for pain control, IV hydration while bowel rest.)
[2018-04-02] MEDS ORDERED: KETOROLAC 15 MG/1 ML SDV IVP SCH (12:00)
--- NOTE | 2018-04-02 13:05 | SOAPPROG ---
SOAP Progress Note Assessment/Plan: Assessment: POD # 2 s/p lap haylie and PPD # 1 s/p ERCP with stent, sphincterotomy and stone extraction Pancreatitis I put on regular diet although Jonelle understands this is primarily so she can have a few crackers if tolerated Repeat labs in am Toradol and Dilaudid better for pain control Continue inpatient Additional details in Priyanka Epstein Pa-[facility] note Plan: 04/02/18 13:03 Objective: Vital Signs Temp Pulse Resp BP Pulse Ox 36.6 C 89 14 113/76 95 04/02/18 08:20 04/02/18 08:20 04/02/18 08:20 04/02/18 08:20 04/02/18 08:20 Laboratory Results 04/02/18 06:15 04/01/18 04/02/18 04/03/18 05:59 05:59 05:59 Intake Total 1350 1200 Output Total 700 Balance 1350 500 ICD10 Worksheet Patient Problems: Problems Problem Status Onset Abdominal pain Acute Choledocholithiasis Acute Active labor at term Acute Spontaneous vaginal delivery Acute
[2018-04-02] MEDS: HYDROmorphONE/DILAUDID 2 MG TAB PO PRN ×3 (13:34→22:00)
--- NOTE | 2018-04-02 14:52 | SOAPPROG ---
SODEBRA Progress Note Assessment/Plan: Assessment:Plan: 1) gallstone pancreatitis - Lipase was elevated prior to ERCp. pain control, clears with some crackers at most. If pain worsens consider imaging 2) LFT's - coming down s/p ERCp stone removal and stent placement 3) biliary stent - bile duct very slow to empty post ERCp, therefore stent place - check AXR in 5 weeks, if still present, then EGD with stent removal will follow Subjective: CC- gallstone pancreatitis s/p ERCp and stone removal and stent placed pt with abdo pain that seems to come in waves pain controlled with oral Dilaudid and Toradol LFT's coming down, lipase up Objective: Vital Signs Temp Pulse Resp BP Pulse Ox 37.2 C 94 16 114/77 98 04/02/18 12:05 04/02/18 12:05 04/02/18 12:05 04/02/18 12:05 04/02/18 12:05 Laboratory Results 04/02/18 06:15 04/01/18 04/02/18 04/03/18 05:59 05:59 05:59 Intake Total 1350 1200 Output Total 700 Balance 1350 500 A+Ox3 CTA S1S2 +BS, decreased, soft but tender Laboratory Tests 04/01/18 04/01/18 04/02/18 05:15 05:15 06:15 Total Bilirubin 4.8 H 2.4 H AST 336 H 114 H ALT 550 H 343 H Alkaline Phosphatase 162 H 146 H Lipase 52932 H > 67131 H with mild guarding but no rebound ICD10 Worksheet Patient Problems: Problems Problem Status Onset Abdominal pain Acute Choledocholithiasis Acute Active labor at term Acute Spontaneous vaginal delivery Acute
[2018-04-02] MEDS: ACETAMINOPHEN 325 MG TAB PO PRN (20:47)
[2018-04-03] MEDS: KETOROLAC 15 MG/1 ML SDV IVP SCH ×2 (00:33→06:30)
[2018-04-03] MEDS: LR 1,000 ML IV SCH (00:38)
[2018-04-03] MEDS: ACETAMINOPHEN 325 MG TAB PO PRN (00:45)
[2018-04-03] MEDS: HYDROmorphONE/DILAUDID 2 MG TAB PO PRN ×2 (04:34→10:06)
[2018-04-03 05:58] LABS: PLATELET COUNT 186 10^3/uL (150-400)
[2018-04-03 07:37] VITALS: BP 105/70
[2018-04-03] MEDS ORDERED: IBUPROFEN 600 MG TAB PO PRN ×2 (07:54→07:56)
--- NOTE | 2018-04-03 10:06 | SOAPPROG ---
SOAP Progress Note Assessment/Plan: Assessment/Plan: 33yo F POD#3 s/p lap haylie for choledocholithiasis. S/p ERCP with stent placement Bili and LFTs trending down Elevated lipase - gallstone pancreatitis, improving Regular diet (so patient can have some crackers. she understands to limit PO intake) Pain improved with dilaudid Leukocytosis - send blood cultures, home with 7 days Levaquin Dispo: DC home today. FU 1 week, sooner if worsening symptoms/questions/concerns S: much better today. no nausea. pain controlled. able to tolerate reg diet O: Sitting at edge of bed, comfortable, no acute distress No increased work of breathing + bowel sounds. Incisions clean, dry and intact without evidence of infection. Nondistended Objective: Vital Signs Temp Pulse Resp BP Pulse Ox 36.9 C 105 H 16 105/70 91 L 04/03/18 07:34 04/03/18 07:34 04/03/18 07:34 04/03/18 07:34 04/03/18 07:34 Laboratory Results 04/03/18 05:54 04/02/18 04/03/18 04/04/18 05:59 05:59 05:59 Intake Total 1200 1080 Output Total 700 Balance 500 1080 ICD10 Worksheet Patient Problems: Problems Problem Status Onset Abdominal pain Acute Choledocholithiasis Acute Active labor at term Acute Spontaneous vaginal delivery Acute
[2018-04-03] MEDS: CYCLOBENZAPRINE 10 MG TAB PO SCH (10:15)
--- NOTE | 2018-04-03 12:10 | GDS ---
[f rep st] DISCHARGE SUMMARY ADMITTING DIAGNOSES: Choledocholithiasis. SECONDARY DIAGNOSES: Gallstone pancreatitis and asthma. REASON FOR ADMISSION: The patient is a pleasant 33-year-old woman who presented to the emergency imra complaining of abdominal pain. She had an abdominal ultrasound performed which showed choledocholi thiasis. She was admitted for surgical intervention, observations, and pain control. HOSPITAL COURSE: She was taken to the operating room on 03/31/2018, by Dr. Maggie Amaro for laparosco pic cholecystectomy, and intraoperative cholangiogram was performed which showed a stone in the commo n bile duct. On postoperative day #1, her labs revealed an increase in her total bilirubin at 4.8, e levated liver function enzymes as well as a lipase of 19,000. Gastroenterology was consulted to perf orm an ERCP. She had an ERCP performed by Dr. Leoncio Jimenez on 04/01/2018. She had ERCP, sphincteroto my, balloon stone removal, and stent placement. On 04/02/2018, she was started on a regular diet and her pain was controlled with oral pain medication. Through her hospital stay, she received IV Levaq uin. On postoperative day #3, her pain was well controlled with oral pain medication. She was claire ating regular diet. She was ambulating independently and was stable for discharge. At the time of d ischarge, her total bilirubin is almost near normal at 1.4. CONDITION: She is being discharged home in stable condition. Pain is controlled with oral pain medi cation, tolerating regular diet, ambulating independently. DISCHARGE MEDICATIONS: At home with prescriptions for oral Dilaudid, p.o. Levaquin, and instructed t o take Motrin over the counter. Instructed to resume home medicines. Please see EMR for further det ail. DISCHARGE INSTRUCTIONS AND FOLLOWUP: She will follow up with Dr. Maggie Amaro or Priyanka Epstein, AM[facility], in 1 week. She will get labs prior to her visit. She will follow a low-fat diet, avoid heavy liftin g, pushing, or pulling for 2 weeks. Call with any worsening symptoms, questions, or concerns. /[id number]/MODL
== END 2018-04-03 13:01 | disposition home or self-care (01) | DRG 418 ==
LOC: CED 13:28 → CEDHOLD 15:51 → OBSVTOIN 15:51 → FOB 17:32
PROVIDERS: ADMIT Surgery; ATTEND Surgery
PROC: BF131ZZ Fluoroscopy of Gallbladder and Bile Ducts using Low Osmolar Contrast (ICD-10-PCS; principal; 2018-03-31 18:15)
PROC: 0FT44ZZ Resection of Gallbladder, Percutaneous Endoscopic Approach (ICD-10-PCS; principal; 2018-03-31 18:15)
PROC: 0FC98ZZ Extirpation of Matter from Common Bile Duct, Via Natural or Artificial Opening Endoscopic (ICD-10-PCS; 2018-04-01)
PROC: 0F798DZ Dilation of Common Bile Duct with Intraluminal Device, Via Natural or Artificial Opening Endoscopic (ICD-10-PCS; 2018-04-01)
DX: K85.10 Biliary acute pancreatitis without necrosis or infection (principal); K80.51 Calculus of bile duct without cholangitis or cholecystitis with obstruction; J45.909 Unspecified asthma, uncomplicated
CPT/HCPCS: 76705-PO; 80053-PO; 81003-PO; 81025-PO; 82248-PO; 83690-PO; 85025-PO; C2625; G0378; J0690; J1100; J1170; J1610; J1885; J1956; J2001; J2250; J2270; J2405; J2704; J3010; Q9961

== ENCOUNTER → 2018-05-10 | Outpatient (CLI) | payer OTHER | LOC: FIMAGING 12:23 | PROVIDERS: ATTEND Internal Medicine Gastroenterology | DX: Z09 Encounter for follow-up examination after completed treatment for conditions other than malignant neoplasm (principal); Z96.89 Presence of other specified functional implants; Z90.49 Acquired absence of other specified parts of digestive tract ==

== ENCOUNTER 2018-05-20 13:27 | Day surgery (SDC) | payer OTHER ==
[2018-05-20] MEDS ORDERED: LR 1,000 ML IV ONE (13:34)
[2018-05-20] MEDS ORDERED: ALBUTEROL 3 ML DEYVIAL IH ONE (13:34)
[2018-05-20] MEDS ORDERED: LIDOCAINE 1% 2 ML INJ ID PRN (13:34)
[2018-05-20] MEDS ORDERED: IOTHALAMATE MEG (CONRAY) 50 ML VIAL IV ONE (14:49)
[2018-05-20] MEDS ORDERED: GLUCAGON HCL 1 MG VIAL ONE (14:49)
[2018-05-20] MEDS ORDERED: MIDAZOLAM 2 MG/2 ML VIAL IVP ONE (14:50)
[2018-05-20] MEDS ORDERED: INDOMETHACIN 50 MG SUPP PR ONE (14:51)
--- NOTE | 2018-05-20 14:53 | PDANEPAE ---
ANE History of Present Illness 33 yo with stent ANE Past Medical History - Cardiovascular History Hx Hypertension: No Hx Arrhythmias: No Hx Chest Pain: No Hx Coronary Artery / Peripheral Vascular Disease: No Hx CHF / Valvular Disease: No Hx Palpitations: No - Pulmonary History Hx COPD: No Hx Asthma/Reactive Airway Disease: Yes Hx Recent Upper Respiratory Infection: No Hx Oxygen in Use at Home: No Hx Sleep Apnea: No Sleep Apnea Screening Result - Last Documented: Negative Pulmonary History Comment: mild intermittant asthma MMJ SMOKE - Neurologic History Hx Cerebrovascular Accident: No Hx Seizures: No Hx Dementia: No - Endocrine History Hx Diabetes: No - Renal History Hx Renal Disorders: No - Liver History Hx Hepatic Disorders: Yes Hepatic History Comment: STENT 04/01/18 - Neurological & Psychiatric Hx Hx Neurological and Psychiatric Disorders: No - Cancer History Hx Cancer: No - Congenital Disorder History Hx Congenital Disorders: No - GI History Hx Gastrointestinal Disorders: No - Other Health History Other Health History: ANEMIA 2017 WITH - Chronic Pain History Chronic Pain: Yes (WHERE STENT IS LOCATED) - Surgical History Prior Surgeries: LAP ANGELICA 03/2017. ERCP. ADENOIDS ANE Review of Systems Review of systems is: negative Review of Systems: - Exercise capacity METS (RN): 5 METS ANE Patient History - Allergies Allergies/Adverse Reactions: crab Allergy (Verified 05/16/18 17:29) Anaphylaxis red dye Allergy (Verified 04/01/18 09:43) Hives - Home Medications Home medications: home medication list seen and reviewed Home Medications: Vaginal Control 05/16/18 [Last Taken Unknown] - NPO status NPO Since - Liquids (Date): 05/20/18 NPO Since - Liquids (Time): 09:00 NPO Since - Solids (Date): 05/19/18 NPO Since - Solids (Time): 18:00 - Anes Hx Anes Hx: no prior problems, post operative nausea - Smoking Hx Smoking Status: Never smoked ANE Labs/Vital Signs - Vital Signs Blood Pressure: 134/82 Heart Rate: 96 Respiratory Rate: 16 O2 Sat (%): 97 Height: 162.56 cm Weight: 48.988 kg ANE Physical Exam - Airway Neck exam: FROM Mallampati Score: Class 1 Mouth exam: normal dental/mouth exam - Pulmonary Pulmonary: no respiratory distress - Cardiovascular Cardiovascular: regular rate and rhythym - ASA Status ASA Status: II ANE Anesthesia Plan Anesthesia Plan: general endotracheal anesthesia
--- NOTE | 2018-05-20 15:01 | PDGENHP ---
History & Physical Chief Complaint: choledocholithisis History of Present Illness: 33 year old female presents for evaluation of CBD stones Pertinent Past, Social, Family History: PMHx: asthma. PSurgHx: CCY Relevant Physical Exam: HEENT: anicteric. CV: RRR +s1s2. Lungs: CTAB. Abd: soft, nt, + BS Cardiorespiratory Assessment: ASA 2
[2018-05-20] MEDS ORDERED: INDOMETHACIN 50 MG SUPP PR PRN (15:02)
[2018-05-20] MEDS ORDERED: fentaNYL 100 MCG/2 ML INJ ONE (15:07)
[2018-05-20] MEDS ORDERED: PROPOFOL/EMULSION 500 MG/50 ML BOTTLE IV ONE (15:07)
[2018-05-20] MEDS ORDERED: NS 500 ML IV SCH (15:15)
--- NOTE | 2018-05-20 16:01 | GIREPORT ---
[facility] Surgical Services - Endoscopy Department Patient Name: Jonelle Naqvi Procedure Date: 05/20/2018 2:42 PM Patient Type: Outpatient Attending MD/ ER Physician: Gamal Vargas MD Procedure: ERCP Indications: Evaluation and possible treatment of bile duct stone(s), Stent removal Patient Profile: 33 year old female preesnts for f/u choledocholithiasis/stent removal. Providers: Gamal Vargas MD Medicines: General Anesthesia. She refused rectal indomethacin. Complications: No immediate complications. Estimated blood loss: Minimal. Description of Procedure: After obtaining informed consent, the scope was passed under direct vis ion. Throughout the procedure, the patient's blood pressure, pulse, and oxyg en saturations were monitored continuously. The Duodenalscope was introduc ed through the mouth, and advanced to the duodenum and used to inject cont rast into the bile duct. The ERCP was accomplished without difficulty. The patient tolerated the procedure well. Findings: A biliary stent was visible on the flame cutting supervisor film. The esophagus was successfully intubated under direct vision. The scope was advanced to a normal major papilla in the descending duodenum without detailed examin ation of the pharynx, larynx and associated structures, and upper GI tract. T he upper GI tract was grossly normal. Evidence of a prior biliary sphincterotomy was noted. One stent was removed from the biliary tree u sing a snare. A wire was passed into the biliary tree on the first attempt. The short-nosed traction sphincterotome was passed over the guidewire and t he bile duct was then deeply cannulated. Contrast was injected. I personal ly interpreted the bile duct images. Ductal flow of contrast was adequate. Image quality was adequate. Contrast extended to the entire biliary gela e. The biliary tree was swept with a 12 mm balloon starting at the bifurca tion. Sludge was swept from the duct. Estimated Blood Loss: Estimated blood loss was minimal. Post Op Diagnosis: - One stent was removed from the biliary tree. - The biliary tree was swept and sludge was found. Recommendation: - Discharge patient to home (with escort). - Clear liquid diet. - Continue previous medicaitons. - Thank you for allowing me to participate in the care of your patient. Attending Participation: I personally performed the entire procedure. Gamal Vargas MD Gamal Vargas MD 05/20/2018 4:00:41 PM This report has been signed electronicallyGamal Vargas MD Number of Addenda: 0 Note Initiated On: 05/20/2018 2:42 PM [email or web address]
[2018-05-20] MEDS ORDERED: ONDANSETRON 4 MG/2 ML VIAL IVP PRN (16:08)
[2018-05-20] MEDS ORDERED: NALOXONE HCL 0.4 MG/ML INJ IVP PRN (16:08)
[2018-05-20] MEDS ORDERED: fentaNYL 100 MCG/2 ML INJ IVP PRN (16:08)
[2018-05-20] MEDS ORDERED: PROMETHAZINE HCL 25 MG/ML INJ IVP PRN (16:08)
[2018-05-20] MEDS ORDERED: ALBUTEROL 3 ML DEYVIAL IH PRN (16:08)
--- NOTE | 2018-05-20 16:09 | POSTANESTH ---
Post Anesthetic Evaluation Cardiovascular Status: Normal, Stable Respiratory Status: Normal, Stable, Requires Airway Assist Pain Control: Adequate, Prn Tx Ordered Nausea/Vomiting Control: Adequate, Prn Tx Ordered Complications Possibly Related to Anesthesia: None Noted
[2018-05-20 17:36] VITALS: BP 114/74
== END 2018-05-20 17:01 | disposition home or self-care (01) ==
LOC: FSGY 13:27
PROVIDERS: ATTEND Internal Medicine Gastroenterology
PROC: 0FC98ZZ Extirpation of Matter from Common Bile Duct, Via Natural or Artificial Opening Endoscopic (ICD-10-PCS; principal; 2018-05-20 15:00)
PROC: 0FPB8DZ Removal of Intraluminal Device from Hepatobiliary Duct, Via Natural or Artificial Opening Endoscopic (ICD-10-PCS; principal; 2018-05-20 15:00)
DX: Z46.59 Encounter for fitting and adjustment of other gastrointestinal appliance and device (principal); K83.8 Other specified diseases of biliary tract; J45.909 Unspecified asthma, uncomplicated
CPT/HCPCS: J1610; J2250; J2704; J3010; Q9961